=== PATIENT | male | born 1975 | race Caucasian/White ===

== ENCOUNTER 2019-12-03 15:42 | Emergency (ER) | payer OTHER, MEDICAID, SELFPAY ==
[2019-12-03] VITALS (17 sets, daily range): BP systolic 130–163; BP diastolic 65–104; PULSE 41–93; RESP 14–67; TEMP 36.6–37.1; O2SAT 96–98; BMI 28.5
--- NOTE | 2019-12-03 16:19 | DI.RAD.S_ITS ---
PROCEDURE: XR CHEST 1V INDICATIONS: chest pain TECHNIQUE: One view of the chest was acquired. COMPARISON: None. FINDINGS: Surgical changes and devices: None. Lungs and pleura: Lungs are clear. No pleural effusions or pneumothorax. Mediastinum: Mediastinal contours appear normal. Heart size is normal. Bones and chest wall: No suspicious bony lesions. Overlying soft tissues appear unremarkable. IMPRESSION: No acute cardiopulmonary pathology. Dictated by: Joel Antoine M.D. on 12/03/2019 at 17:09 Approved by: Joel Antoine M.D. on 12/03/2019 at 17:09
--- NOTE | 2019-12-03 16:42 | DI.CT.S_ITS ---
PROCEDURE: CT ABDOMEN PELVIS W CON INDICATIONS: severe lower abdominal pain with guarding TECHNIQUE: After the administration of intravenous contrast, 5 mm thick sections acquired from the diaphragm to the symphysis. 5 mm coronal and sagittal reformats were acquired. For radiation dose reduction, the following was used: automated exposure control, adjustment of mA and/or kV according to patient size. COMPARISON: None. FINDINGS: Image quality: Excellent. ABDOMEN: Lung bases: Lung bases are clear. Heart size is normal. Solid organs: Liver is enlarged with smooth lobulated contour, no discrete of attic lesion is noted. Gallbladder is within normal limits. Biliary system is non dilated. Pancreas enhances normally. Spleen is normal in size and enhancement. No adrenal nodules. Kidneys demonstrate normal size and enhancement, without hydronephrosis. Peritoneum and bowel: Bowel loops demonstrate normal wall thickness and caliber. No free fluid or air. Appendix is visualized and is within normal limits. Moderate amount of fecal matter throughout the colon extending to the rectum is seen. Nodes and vessels: No retroperitoneal or mesenteric adenopathy by size criteria. Aorta and inferior vena cava are normal in size. Miscellaneous: No ventral hernias. PELVIS: Genitourinary: Bladder wall thickness is normal. Miscellaneous: No inguinal hernias or adenopathy. Bones: No suspicious bony lesions. Old healed fracture involving lateral portion of left iliac bone is seen. No vertebral body compression fractures. IMPRESSION: 1. Mild to moderate constipation. No bowel obstruction. No abnormal bowel wall thickening. Normal appendix. No free fluid or free air. 2. No renal stone or hydronephrosis. 3. Hepatomegaly with smoothly lobulated liver contour which may represent congenital process. No discrete [place] lesion is seen. 4. No gross acute osseous abnormality is seen. Old healed left iliac fracture. Dictated by: Joel Antoine M.D. on 12/03/2019 at 18:07 Approved by: Joel Antoine M.D. on 12/03/2019 at 18:14
--- NOTE | 2019-12-03 16:42 | DI.CT.S_ITS ---
PROCEDURE: CT LUMBAR SPINE WO CON INDICATIONS: complains of severe low back pain radiating down both legs TECHNIQUE: Noncontrast 3 mm thick sections acquired from the T12 level to the sacrum. Sagittal and coronal reformats were constructed. For radiation dose reduction, the following was used: automated exposure control. COMPARISON: None. FINDINGS: Image quality: Excellent. Bones: There is mild straightening of normal lumbar lordosis. No acute vertebral body compression fractures. No suspicious lytic or blastic bony lesions. Central spinal caliber is of normal overall caliber. No pars defects. T12-L1: Unremarkable. L1-L2: Unremarkable. L2-L3: Unremarkable. L3-L4: Mild degenerative endplate changes are seen. Mild diffuse disc bulge is noted with no significant canal stenosis or neural foraminal narrowing. L4-L5: Degenerative endplate changes are noted. There is suggestion of broad-based, more left-sided disc herniation causing moderate central canal stenosis and left worse than right bilateral neural foraminal narrowing. L5-S1: Unremarkable. Soft tissues: No retroperitoneal masses or hematomas. Visualized aorta is normal in caliber. IMPRESSION: 1. Broad-based, more left-sided disc herniation and possible extrusion causing moderate central canal stenosis and left worse than right bilateral neural foraminal narrowing. 2. No acute lumbar spine fracture or dislocation. Dictated by: Joel Antoine M.D. on 12/03/2019 at 18:14 Approved by: Joel Antoine M.D. on 12/03/2019 at 18:16
[2019-12-03 17:02] LABS: Add Manual Diff / Slide Review NO; Basophils Absolute Auto 100 /uL (0-100); Basophils Percent Auto 1.3 % (0-2); Eosinophils Absolute Auto 100 /uL (0-450); Eosinophils Percent Auto 0.9 % (2-4); Hematocrit 45.9 % (41-53); Hemoglobin 15.6 g/dL (13.5-17.5); Lymphocytes Absolute Auto 1500 /uL (1100-4500); Lymphocytes Percent Auto 21.6 % (25-40); Mean Corpuscular Hemoglobin 31.4 PG (26-34); Mean Corpuscular Volume 92.4 fL (80-100); Monocytes Absolute Auto 500 /uL (0-900); Neutrophils Absolute Auto 4600 /uL (1500-7000); Neutrophils Percent Auto 68.2 % (50-75); Platelet Count 152 X10^3/uL (150-400); Red Blood Cell Count 4.97 X10^6/uL (4.5-5.9); Red Cell Distribution Width 13.2 % (11.6-14.8); White Blood Cell Count 6.8 X10^3/uL (4.5-11.0)
[2019-12-03] MEDS: KETOROLAC 60 MG/2 ML VIAL 30 MG IV (17:05)
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
[2019-12-03 17:36] LABS: Alanine Aminotransferase 56 IU/L (<50); Albumin 4.9 g/dL (3.5-5.0); Albumin Globulin Ratio 1.6 (1.0-2.8); Alkaline Phosphatase 56 U/L (38-126); Aspartate Aminotransferase 52 IU/L (17-59); Bilirubin Total 0.5 mg/dL (0.2-1.3); Blood Urea Nitrogen 15 mg/dL (9-20); Calcium 10.3 mg/dL (8.4-10.2); Carbon Dioxide 26 mmol/L (22-32); Chloride 104 mmol/L (98-107); Creatine Kinase 73 U/L (55-170); Estimated Glomerular Filt Rate > 60.0 mL/min (>60); Glucose 125 mg/dL (70-100); HEMOLYSIS < 15 (0-50); Lipase 232 U/L (23-300); Potassium 4.4 mmol/L (3.4-5.1); Sodium 138 mmol/L (137-145); Total Protein 7.9 g/dL (6.3-8.2)
[2019-12-03] MEDS: HYDROMORPHONE 1 MG INJ IV (17:46)
[2019-12-03 17:47] LABS: Troponin I < 0.012 ng/mL (0.01-0.034)
[2019-12-03 17:51] LABS: INR 1.1 (0.9-1.3); Prothrombin Time 12.1 SECONDS (10.1-12.7)
[2019-12-03 17:54] LABS: PTT Partial Thromboplastin Tim 29 SECONDS (26.4-36.2)
[2019-12-03] MEDS: CYCLOBENZAPRINE 10 MG TABLET PO (18:55)
[2019-12-03] MEDS: methylPREDNISolone 125 MG/2 ML VIAL IV (19:05)
--- NOTE | 2019-12-03 19:55 | PC.NURSE ---
Patient stated that he was given a prescription for Oxycodone by another MD on the of this month. The Rx was supposed to be taken over the course of 10 days and he took the amount in 2 days. He asked for an additional Rx of Oxycodone to written to carry him over until Friday. He was informed that we would not write him a prescription for additional oxycodone. He needed to follow up with the MD that originally prescribed him pain meds. His pain was treated and he was given muscle relaxers and steroids while in the ED.
== END 2019-12-03 20:01 | disposition home or self-care (01) ==
PROVIDERS: Emergency Provider Emergency Medicine
DX: R07.89 Other chest pain (principal); M51.26 Other intervertebral disc displacement, lumbar region; M54.42 Lumbago with sciatica, left side; R10.30 Lower abdominal pain, unspecified; M54.16 Radiculopathy, lumbar region; R11.0 Nausea
CPT/HCPCS: 36415; 71045; 72131; 74177; 80053; 82550; 83690; 84484; 85025; 85610; 85730; 93005; 96374; 96375; 99284; 99285; J1170; J1885; J2930